=== PATIENT | female | born 1955 | race African-American/Black ===

== ENCOUNTER 2017-05-11 09:52 | Inpatient (IN) ==
[2017-05-11] MEDS ORDERED: LEVOFLOXACIN INJ 500 MG in PREMIX 1 EACH IV STA (10:40)
[2017-05-11] MEDS ORDERED: ALBUTEROL/IPRATROPIUM 3 ML NEB RESP TX STA (10:40)
[2017-05-11] MEDS ORDERED: LEVOFLOXACIN INJ 100 ML IV ONE ×2 (11:34→12:44)
[2017-05-11 11:47] LABS: Basophils # 0.1 10*3/uL (0.0-0.2); Basophils % 0.3 % (0.0-0.8); Eosinophils # 0.2 10*3/uL (0.0-0.87); Eosinophils % 0.7 % (0.00-10.9); Hematocrit 29.9 VOL% (35.7-47.0); Hemoglobin 9.3 GM/DL (12.0-16.0); Immature Granulocytes Absolute 0.22 #; Lymphocytes # 2.4 10*3/uL (1.4-4.0); Lymphocytes % 10.6 % (21.3-54.2); Mean Corpuscular HGB Conc 31.1 GM/DL (32-36); Mean Corpuscular Hemoglobin 27 PG (27-34); Mean Corpuscular Volume 85.2 FL (87-102); Mean Platelet Volume 9.8 FL (9.6-12.0); Monocytes # 1.5 10*3/uL (0.11-0.8); Monocytes % 6.8 % (1.7-12.7); Neutrophils # 18.1 10*3/uL (1.4-7.4); Neutrophils % 80.6 % (38.7-73.9); Platelet Count 359 T/CUMM (130-400); Red Blood Count 3.51 MC/CUMM (3.8-5.5); Red Cell Distribution Width 15.7 % (9.3-17.3); White Blood Count 22.5 T/CUMM (4-12)
[2017-05-11 12:06] LABS: Band Neutrophils 1 % (0-10); Giant Platelets Few; Hypochromasia 1+; Lymphocytes 9 % (20-55); Platelet Estimate Adequate; Segmented Neutrophils 85 % (50-85); Total Cells Counted 100
[2017-05-11 12:11] LABS: Lactic Acid 1.3 MMOL/L (0.4-2.0)
[2017-05-11 12:12] LABS: Albumin 2.6 G/DL (3.4-5.0); Bilirubin,Total 0.6 MG/DL (0.2-1.0); Calcium 8.7 MG/DL (8.5-10.1); Osmolality,Calculated 288.1 MOS/KG (273-304); Potassium 4.2 MMOL/L (3.5-5.1); Total Protein 6.7 G/DL (6.4-8.3)
[2017-05-11] MEDS ORDERED: ACETAMINOPHEN 500 MG TABLET ONE (12:45)
[2017-05-11] MEDS ORDERED: ACETAMINOPHEN 500 MG TABLET PO STA (12:50)
[2017-05-11] MEDS ORDERED: SODIUM CHLORIDE 0.9% 1,000 ML IV SCH (14:30)
[2017-05-11] MEDS ORDERED: ONDANSETRON 4 MG/2 ML VIAL IV PRN (14:30)
[2017-05-11] MEDS ORDERED: ACETAMINOPHEN 325 MG TABLET PO PRN (14:30)
[2017-05-11] MEDS: PROPOFOL 1,000 MG/100 ML BOTTLE IV SCH ×4 (15:00→22:45)
[2017-05-11] MEDS ORDERED: PROPOFOL 1,000 MG/100 ML BOTTLE IV ONE ×3 (15:02→16:59)
[2017-05-11] MEDS ORDERED: ETOMIDATE 40 MG/20 ML VIAL IV ONE (15:12)
[2017-05-11] MEDS ORDERED: SUCCINYLCHOLINE 200 MG/10 ML VIAL ONE (15:12)
[2017-05-11 16:19] LABS: Amorphous Crystals,Urine Few /HPF (Few); Apearance,Urine CLOUDY (Clear); Bacteria,Urine Many /HPF (Few); Bilirubin,Urine Negative (Negative); Blood, Urine Small mg/dL (Negative); Glucose,Urine (UA) 150 mg/dL (Negative); Ketones,Urine 5 mg/dL (Negative); Nitrite,Urine Negative (Negative); Protein,Urine >=500 MG/DL; Squamous Epithelial Cell,Urine Moderate /HPF (0-10); Urine Specific Gravity 1.016 (1.001-1.035); Urine Urobilinogen < 2.0 EU/DL (0.2-1.0)
[2017-05-11 16:20] LABS: Urine Color Yellow (Yellow)
[2017-05-11] MEDS: ALBUTEROL/IPRATROPIUM 3 ML NEB RESP TX SCH ×2 (16:40→20:22)
[2017-05-11] MEDS ORDERED: FUROSEMIDE 40 MG/4 ML VIAL IV ONE (16:50)
[2017-05-11] MEDS ORDERED: LIDOCAINE 2% 20 ML VIAL ONE (16:55)
[2017-05-11] MEDS: PIPERACILLIN/TAZOBACTAM 3,375 MG in SODIUM CHLORIDE 0.9% 100 ML IV SCH (19:47)
[2017-05-11] MEDS: MIDAZOLAM 100 MG in SODIUM CHLORIDE 0.9% 80 ML IV SCH (19:50)
[2017-05-11] MEDS: LABETALOL 20 MG/4 ML SYRINGE IV PRN ×2 (19:56→22:45)
[2017-05-11] MEDS: ENOXAPARIN 60 MG/0.6 ML SYRINGE SUBCUT SCH (19:56)
[2017-05-11] MEDS: cloNIDine 0.3 MG/24 HR PATCH TRANSDERM SCH (21:46)
[2017-05-11] MEDS: INSULIN LISPRO 100 UNIT/ML SUBCUT SCH (21:48)
[2017-05-11] MEDS: DOCUSATE SODIUM 100 MG CAPSULE PO SCH (21:48)
[2017-05-12] MEDS: PROPOFOL 1,000 MG/100 ML BOTTLE IV SCH ×11 (00:46→23:18)
[2017-05-12] MEDS: ALBUTEROL/IPRATROPIUM 3 ML NEB RESP TX SCH ×4 (01:01→19:48)
[2017-05-12] MEDS: PIPERACILLIN/TAZOBACTAM 3,375 MG in SODIUM CHLORIDE 0.9% 100 ML IV SCH ×3 (02:17→17:54)
[2017-05-12] MEDS: LABETALOL 20 MG/4 ML SYRINGE IV PRN ×4 (02:17→16:45)
[2017-05-12 03:52] LABS: ABG Base Excess -2.5 MMOL/L (-2.5-2.5); ABG HCO3 23.5 MMOL/L (20-26); ABG Oxygen Saturation 99.1 % (95-100); ABG PCO2 45.9 MM HG (35-48); ABG PH 7.327 (7.35-7.45); ABG PO2 206.6 MM HG (80-95); ABG TCO2 24.9 MMOL/L (23-27); Allen Test Positive; Pt O2 Delivery Device Ventilator
[2017-05-12 05:15] LABS: Basophils % 0.2 % (0.0-0.8); Eosinophils % 0.1 % (0.00-10.9); Hematocrit 26.8 VOL% (35.7-47.0); Hemoglobin 8.7 GM/DL (12.0-16.0); Immature Granulocytes % 0.8 %; Immature Granulocytes Absolute 0.15 #; Lymphocytes # 1.8 10*3/uL (1.4-4.0); Lymphocytes % 9.8 % (21.3-54.2); Mean Corpuscular HGB Conc 32.5 GM/DL (32-36); Mean Corpuscular Hemoglobin 27 PG (27-34); Mean Corpuscular Volume 84.5 FL (87-102); Mean Platelet Volume 9.8 FL (9.6-12.0); Monocytes # 1.1 10*3/uL (0.11-0.8); Monocytes % 5.8 % (1.7-12.7); Neutrophils # 15.5 10*3/uL (1.4-7.4); Neutrophils % 83.3 % (38.7-73.9); Platelet Count 324 T/CUMM (130-400); Red Blood Count 3.17 MC/CUMM (3.8-5.5); Red Cell Distribution Width 15.5 % (9.3-17.3); White Blood Count 18.6 T/CUMM (4-12)
[2017-05-12 06:04] LABS: Bilirubin,Total 1.1 MG/DL (0.2-1.0); Free T4 (Free Thyroxine) 1.01 NG/DL (0.76-1.46); Osmolality,Calculated 294.4 MOS/KG (273-304); Potassium 4.3 MMOL/L (3.5-5.1); Risk Ratio 3.12; Thyroid Stimulating Hormone 1.07 uIU/ml (0.358-3.74); Total Protein 5.9 G/DL (6.4-8.3); VLDL CHOLESTEROL 32.2 MG/DL
[2017-05-12] MEDS ORDERED: FUROSEMIDE 40 MG/4 ML VIAL IV ONE (07:55)
[2017-05-12] MEDS: INSULIN LISPRO 100 UNIT/ML SUBCUT SCH ×4 (08:03→22:26)
[2017-05-12] MEDS: PANTOPRAZOLE 40 MG VIAL IV SCH (08:04)
[2017-05-12] MEDS: DOCUSATE SODIUM 100 MG CAPSULE PO SCH ×2 (08:04→22:21)
[2017-05-12] MEDS ORDERED: PANTOPRAZOLE 40 MG TABLET PO SCH (09:00)
[2017-05-12] MEDS: ENOXAPARIN 60 MG/0.6 ML SYRINGE SUBCUT SCH (22:27)
[2017-05-13] MEDS: ALBUTEROL/IPRATROPIUM 3 ML NEB RESP TX SCH ×4 (01:23→20:03)
[2017-05-13] MEDS: PROPOFOL 1,000 MG/100 ML BOTTLE IV SCH ×7 (01:45→22:24)
[2017-05-13] MEDS: PIPERACILLIN/TAZOBACTAM 3,375 MG in SODIUM CHLORIDE 0.9% 100 ML IV SCH ×3 (02:49→18:10)
[2017-05-13] MEDS: MIDAZOLAM 100 MG in SODIUM CHLORIDE 0.9% 80 ML IV SCH ×3 (03:50→20:34)
[2017-05-13 04:14] LABS: ABG Base Excess -1.7 MMOL/L (-2.5-2.5); ABG Oxygen Saturation 99.2 % (95-100); ABG PCO2 49.4 MM HG (35-48); ABG PH 7.317 (7.35-7.45); ABG TCO2 21.8 MMOL/L (23-27); Pt O2 Delivery Device Ventilator
[2017-05-13 05:47] LABS: Basophils # 0.1 10*3/uL (0.0-0.2); Basophils % 0.4 % (0.0-0.8); Eosinophils # 0.7 10*3/uL (0.0-0.87); Eosinophils % 4.6 % (0.00-10.9); Hematocrit 26.8 VOL% (35.7-47.0); Hemoglobin 8.3 GM/DL (12.0-16.0); Immature Granulocytes % 1.3 %; Immature Granulocytes Absolute 0.19 #; Lymphocytes # 2.4 10*3/uL (1.4-4.0); Lymphocytes % 16.1 % (21.3-54.2); Mean Corpuscular Hemoglobin 27 PG (27-34); Mean Corpuscular Volume 85.9 FL (87-102); Mean Platelet Volume 10.3 FL (9.6-12.0); Monocytes % 7.1 % (1.7-12.7); Neutrophils # 10.3 10*3/uL (1.4-7.4); Neutrophils % 70.5 % (38.7-73.9); Platelet Count 332 T/CUMM (130-400); Red Blood Count 3.12 MC/CUMM (3.8-5.5); Red Cell Distribution Width 15.4 % (9.3-17.3); White Blood Count 14.6 T/CUMM (4-12)
[2017-05-13 06:05] LABS: Albumin 1.9 G/DL (3.4-5.0); Bilirubin,Total 0.8 MG/DL (0.2-1.0); Calcium 8.5 MG/DL (8.5-10.1); Osmolality,Calculated 296.8 MOS/KG (273-304); Total Protein 6.1 G/DL (6.4-8.3)
[2017-05-13] MEDS: LOSARTAN/HCTZ 50-12.5 MG TABLET PO SCH (08:46)
[2017-05-13] MEDS: DOCUSATE SODIUM 100 MG CAPSULE PO SCH ×2 (08:46→20:16)
[2017-05-13] MEDS: FUROSEMIDE 40 MG/4 ML VIAL IV SCH (08:46)
[2017-05-13] MEDS: PANTOPRAZOLE 40 MG VIAL IV SCH (08:47)
[2017-05-13] MEDS: amLODIPine 5 MG TABLET PO SCH ×2 (08:47→20:16)
[2017-05-13] MEDS: LABETALOL 20 MG/4 ML SYRINGE IV PRN ×7 (09:15→19:22)
[2017-05-13] MEDS: INSULIN LISPRO 100 UNIT/ML SUBCUT SCH ×5 (09:35→23:57)
[2017-05-13] MEDS ORDERED: DEXTROSE 50% 25 GM/50 ML VIAL IV PRN (11:31)
[2017-05-13] MEDS ORDERED: GLUCAGON 1 MG VIAL IM PRN (11:31)
[2017-05-13] MEDS: ENOXAPARIN 60 MG/0.6 ML SYRINGE SUBCUT SCH (20:16)
[2017-05-13] MEDS ORDERED: hydrALAZINE 20 MG/1 ML VIAL IV ONE (21:21)
[2017-05-13] MEDS: hydrALAZINE 20 MG/1 ML VIAL IV PRN (21:50)
[2017-05-14] MEDS: LABETALOL 20 MG/4 ML SYRINGE IV PRN ×3 (00:35→23:21)
[2017-05-14] MEDS: ALBUTEROL/IPRATROPIUM 3 ML NEB RESP TX SCH ×5 (00:51→23:59)
[2017-05-14] MEDS: PIPERACILLIN/TAZOBACTAM 3,375 MG in SODIUM CHLORIDE 0.9% 100 ML IV SCH ×3 (02:28→17:12)
[2017-05-14] MEDS: PROPOFOL 1,000 MG/100 ML BOTTLE IV SCH ×6 (03:30→23:36)
[2017-05-14 04:05] LABS: Basophils % 0.2 % (0.0-0.8); Eosinophils # 0.6 10*3/uL (0.0-0.87); Eosinophils % 3.4 % (0.00-10.9); Hematocrit 23.8 VOL% (35.7-47.0); Hemoglobin 7.9 GM/DL (12.0-16.0); Immature Granulocytes % 2.7 %; Immature Granulocytes Absolute 0.45 #; Lymphocytes # 2.5 10*3/uL (1.4-4.0); Lymphocytes % 15.1 % (21.3-54.2); Mean Corpuscular HGB Conc 33.2 GM/DL (32-36); Mean Corpuscular Hemoglobin 28 PG (27-34); Mean Corpuscular Volume 85.3 FL (87-102); Mean Platelet Volume 10.2 FL (9.6-12.0); Monocytes # 1.4 10*3/uL (0.11-0.8); Neutrophils # 11.9 10*3/uL (1.4-7.4); Neutrophils % 70.6 % (38.7-73.9); Platelet Count 366 T/CUMM (130-400); Red Blood Count 2.79 MC/CUMM (3.8-5.5); Red Cell Distribution Width 15.8 % (9.3-17.3); White Blood Count 16.9 T/CUMM (4-12)
[2017-05-14] MEDS: hydrALAZINE 20 MG/1 ML VIAL IV PRN (04:06)
[2017-05-14 04:36] LABS: Calcium 7.4 MG/DL (8.5-10.1); Osmolality,Calculated 295.3 MOS/KG (273-304); Potassium 3.7 MMOL/L (3.5-5.1)
[2017-05-14 05:12] LABS: Allen Test Positive; Pt O2 Delivery Device Ventilator
[2017-05-14 05:13] LABS: ABG HCO3 26.1 MMOL/L (20-26); ABG Oxygen Saturation 98.7 % (95-100); ABG PH 7.444 (7.35-7.45); ABG PO2 151.8 MM HG (80-95); ABG TCO2 27.3 MMOL/L (23-27)
[2017-05-14] MEDS: INSULIN LISPRO 100 UNIT/ML SUBCUT SCH ×4 (06:05→23:35)
[2017-05-14 07:19] LABS: Prealbumin 38.7 MG/DL (20-40)
[2017-05-14] MEDS: PANTOPRAZOLE 40 MG VIAL IV SCH (09:13)
[2017-05-14] MEDS: FUROSEMIDE 40 MG/4 ML VIAL IV SCH (09:13)
[2017-05-14] MEDS: amLODIPine 5 MG TABLET PO SCH ×2 (09:14→21:02)
[2017-05-14] MEDS: LOSARTAN/HCTZ 50-12.5 MG TABLET PO SCH (09:14)
[2017-05-14] MEDS: DOCUSATE SODIUM 100 MG CAPSULE PO SCH ×2 (09:14→21:03)
[2017-05-14] MEDS: ENOXAPARIN 60 MG/0.6 ML SYRINGE SUBCUT SCH (20:07)
[2017-05-14] MEDS: MUPIROCIN 2% OINT 22 GM TUBE TOP SCH (21:03)
[2017-05-14] MEDS: MIDAZOLAM 100 MG in SODIUM CHLORIDE 0.9% 80 ML IV SCH (23:22)
[2017-05-15] MEDS: PIPERACILLIN/TAZOBACTAM 3,375 MG in SODIUM CHLORIDE 0.9% 100 ML IV SCH ×3 (01:07→20:07)
[2017-05-15] MEDS: hydrALAZINE 20 MG/1 ML VIAL IV PRN (02:23)
[2017-05-15 02:54] LABS: Basophils % 0.3 % (0.0-0.8); Eosinophils # 0.8 10*3/uL (0.0-0.87); Eosinophils % 5.6 % (0.00-10.9); Hematocrit 22.5 VOL% (35.7-47.0); Hemoglobin 7.2 GM/DL (12.0-16.0); Immature Granulocytes % 3.7 %; Immature Granulocytes Absolute 0.54 #; Lymphocytes # 2.3 10*3/uL (1.4-4.0); Lymphocytes % 15.6 % (21.3-54.2); Mean Corpuscular Hemoglobin 28 PG (27-34); Mean Corpuscular Volume 85.9 FL (87-102); Mean Platelet Volume 9.6 FL (9.6-12.0); Monocytes # 1.3 10*3/uL (0.11-0.8); Monocytes % 8.6 % (1.7-12.7); Neutrophils # 9.8 10*3/uL (1.4-7.4); Neutrophils % 66.2 % (38.7-73.9); Platelet Count 343 T/CUMM (130-400); Red Blood Count 2.62 MC/CUMM (3.8-5.5); Red Cell Distribution Width 15.9 % (9.3-17.3); White Blood Count 14.7 T/CUMM (4-12)
[2017-05-15] MEDS: PROPOFOL 1,000 MG/100 ML BOTTLE IV SCH ×7 (03:11→21:51)
[2017-05-15 05:30] LABS: Albumin 1.9 G/DL (3.4-5.0); Bilirubin,Total 1.3 MG/DL (0.2-1.0); Calcium 7.9 MG/DL (8.5-10.1); Osmolality,Calculated 301.8 MOS/KG (273-304); Potassium 3.8 MMOL/L (3.5-5.1); Total Protein 5.9 G/DL (6.4-8.3)
[2017-05-15 06:05] LABS: ABG Base Excess 1.9 MMOL/L (-2.5-2.5); ABG HCO3 26.1 MMOL/L (20-26); ABG Oxygen Saturation 98.3 % (95-100); ABG PCO2 44.9 MM HG (35-48); ABG TCO2 25.4 MMOL/L (23-27)
[2017-05-15 06:52] LABS: Eosinophils 1 % (0-10); Lymphocytes 16 % (20-55); Platelet Estimate Adequate; Segmented Neutrophils 73 % (50-85); Total Cells Counted 100
[2017-05-15] MEDS: INSULIN LISPRO 100 UNIT/ML SUBCUT SCH ×3 (07:12→17:55)
[2017-05-15] MEDS: ALBUTEROL/IPRATROPIUM 3 ML NEB RESP TX SCH ×3 (07:46→19:50)
[2017-05-15] MEDS: MUPIROCIN 2% OINT 22 GM TUBE TOP SCH ×2 (09:15→21:14)
[2017-05-15] MEDS: amLODIPine 5 MG TABLET PO SCH ×2 (09:18→21:15)
[2017-05-15] MEDS: PANTOPRAZOLE 40 MG VIAL IV SCH (09:18)
[2017-05-15] MEDS: FUROSEMIDE 40 MG/4 ML VIAL IV SCH (09:18)
[2017-05-15] MEDS: DOCUSATE SODIUM 100 MG/10 ML UDCUP PO SCH ×2 (09:18→21:15)
[2017-05-15] MEDS: LOSARTAN/HCTZ 50-12.5 MG TABLET PO SCH (09:18)
[2017-05-15] MEDS: MULTIVITAMIN LIQUID (CENTRUM) 60 ML BOTTLE PO SCH (09:21)
[2017-05-15] MEDS: ZINC OXIDE PASTE 113 GM TUBE TOP PRN (09:21)
[2017-05-15] MEDS ORDERED: SODIUM CHLORIDE 0.9% 1,000 ML IV PRN (11:11)
[2017-05-15] MEDS ORDERED: FUROSEMIDE 40 MG/4 ML VIAL IV ONE (11:19)
[2017-05-15] MEDS: MIDAZOLAM 100 MG in SODIUM CHLORIDE 0.9% 80 ML IV SCH (19:58)
[2017-05-15] MEDS: ENOXAPARIN 60 MG/0.6 ML SYRINGE SUBCUT SCH (21:14)
[2017-05-16] MEDS: PROPOFOL 1,000 MG/100 ML BOTTLE IV SCH ×10 (00:16→22:00)
[2017-05-16] MEDS: INSULIN LISPRO 100 UNIT/ML SUBCUT SCH ×4 (00:23→18:28)
[2017-05-16] MEDS: hydrALAZINE 20 MG/1 ML VIAL IV PRN (00:35)
[2017-05-16] MEDS ORDERED: HYDROmorphone 2 MG/1 ML VIAL ONE (01:04)
[2017-05-16] MEDS: HYDROmorphone 2 MG/1 ML VIAL IV PRN ×2 (01:06→20:34)
[2017-05-16] MEDS: ALBUTEROL/IPRATROPIUM 3 ML NEB RESP TX SCH ×4 (02:09→18:15)
[2017-05-16] MEDS: PIPERACILLIN/TAZOBACTAM 3,375 MG in SODIUM CHLORIDE 0.9% 100 ML IV SCH ×3 (03:06→18:27)
[2017-05-16 03:28] LABS: ABG Base Excess 1.7 MMOL/L (-2.5-2.5); ABG HCO3 27.5 MMOL/L (20-26); ABG Oxygen Saturation 95.2 % (95-100); ABG PH 7.367 (7.35-7.45)
[2017-05-16 04:27] LABS: Basophils # 0.1 10*3/uL (0.0-0.2); Basophils % 0.4 % (0.0-0.8); Eosinophils # 0.9 10*3/uL (0.0-0.87); Eosinophils % 6.1 % (0.00-10.9); Hematocrit 28.3 VOL% (35.7-47.0); Immature Granulocytes % 4.5 %; Immature Granulocytes Absolute 0.66 #; Lymphocytes # 2.2 10*3/uL (1.4-4.0); Lymphocytes % 14.7 % (21.3-54.2); Mean Corpuscular HGB Conc 33.2 GM/DL (32-36); Mean Corpuscular Hemoglobin 29 PG (27-34); Mean Corpuscular Volume 87.6 FL (87-102); Mean Platelet Volume 10.1 FL (9.6-12.0); Monocytes % 6.8 % (1.7-12.7); Neutrophils # 9.9 10*3/uL (1.4-7.4); Neutrophils % 67.5 % (38.7-73.9); Platelet Count 349 T/CUMM (130-400); Red Blood Count 3.23 MC/CUMM (3.8-5.5); Red Cell Distribution Width 16.6 % (9.3-17.3); White Blood Count 14.7 T/CUMM (4-12)
[2017-05-16 04:29] LABS: Hemoglobin 9.4 GM/DL (12.0-16.0)
[2017-05-16 05:19] LABS: Band Neutrophils 3 % (0-10); Eosinophils 7 % (0-10); Giant Platelets Few; Lymphocytes 14 % (20-55); Platelet Estimate Adequate; Segmented Neutrophils 73 % (50-85); Total Cells Counted 100
[2017-05-16 05:44] LABS: Osmolality,Calculated 293.8 MOS/KG (273-304); Potassium 3.7 MMOL/L (3.5-5.1)
[2017-05-16] MEDS: LOSARTAN/HCTZ 50-12.5 MG TABLET PO SCH (09:09)
[2017-05-16] MEDS: DOCUSATE SODIUM 100 MG/10 ML UDCUP PO SCH ×2 (09:09→20:34)
[2017-05-16] MEDS: FUROSEMIDE 40 MG/4 ML VIAL IV SCH (09:09)
[2017-05-16] MEDS: MUPIROCIN 2% OINT 22 GM TUBE TOP SCH ×2 (09:09→20:41)
[2017-05-16] MEDS: PANTOPRAZOLE 40 MG VIAL IV SCH (09:10)
[2017-05-16] MEDS: amLODIPine 5 MG TABLET PO SCH ×2 (09:10→20:34)
[2017-05-16] MEDS: MULTIVITAMIN LIQUID (CENTRUM) 60 ML BOTTLE PO SCH (09:12)
[2017-05-16] MEDS: ENOXAPARIN 60 MG/0.6 ML SYRINGE SUBCUT SCH (20:33)
[2017-05-16] MEDS: MIDAZOLAM 100 MG in SODIUM CHLORIDE 0.9% 80 ML IV SCH (20:41)
[2017-05-17] MEDS: INSULIN LISPRO 100 UNIT/ML SUBCUT SCH ×4 (00:11→18:09)
[2017-05-17] MEDS: ALBUTEROL/IPRATROPIUM 3 ML NEB RESP TX SCH ×4 (00:30→19:20)
[2017-05-17] MEDS: PIPERACILLIN/TAZOBACTAM 3,375 MG in SODIUM CHLORIDE 0.9% 100 ML IV SCH ×3 (01:03→18:09)
[2017-05-17] MEDS: HYDROmorphone 2 MG/1 ML VIAL IV PRN (02:25)
[2017-05-17 04:18] LABS: Basophils # 0.1 10*3/uL (0.0-0.2); Basophils % 0.4 % (0.0-0.8); Eosinophils # 0.9 10*3/uL (0.0-0.87); Eosinophils % 4.5 % (0.00-10.9); Hematocrit 29.9 VOL% (35.7-47.0); Hemoglobin 9.4 GM/DL (12.0-16.0); Immature Granulocytes % 4.1 %; Lymphocytes # 2.1 10*3/uL (1.4-4.0); Lymphocytes % 10.5 % (21.3-54.2); Mean Corpuscular HGB Conc 31.4 GM/DL (32-36); Mean Corpuscular Hemoglobin 28 PG (27-34); Mean Corpuscular Volume 87.9 FL (87-102); Mean Platelet Volume 9.9 FL (9.6-12.0); Monocytes # 1.4 10*3/uL (0.11-0.8); NRBC # 0.02 10*3/uL; Neutrophils # 14.5 10*3/uL (1.4-7.4); Neutrophils % 73.5 % (38.7-73.9); Platelet Count 410 T/CUMM (130-400); Red Cell Distribution Width 17.2 % (9.3-17.3); White Blood Count 19.7 T/CUMM (4-12)
[2017-05-17 04:25] LABS: ABG Base Excess -2.4 MMOL/L (-2.5-2.5); ABG HCO3 22.4 MMOL/L (20-26); ABG Oxygen Saturation 95.7 % (95-100); ABG PCO2 64.3 MM HG (35-48); ABG PH 7.222 (7.35-7.45); ABG TCO2 24.7 MMOL/L (23-27)
[2017-05-17 04:49] LABS: Prealbumin 14.7 MG/DL (20-40)
[2017-05-17 04:54] LABS: Calcium 8.3 MG/DL (8.5-10.1); Osmolality,Calculated 301.4 MOS/KG (273-304); Potassium 4.8 MMOL/L (3.5-5.1)
[2017-05-17 05:09] LABS: Eosinophils 3 % (0-10); Lymphocytes 12 % (20-55); Segmented Neutrophils 76 % (50-85); Total Cells Counted 100
[2017-05-17 05:10] LABS: Giant Platelets Few; Hypochromasia 1+; Platelet Estimate Adequate
[2017-05-17] MEDS ORDERED: SODIUM CHLORIDE 0.9% 250 ML IV ONE (05:30)
[2017-05-17] MEDS: SODIUM CHLORIDE 0.9% 1,000 ML IV SCH ×2 (05:39→14:00)
[2017-05-17] MEDS: amLODIPine 5 MG TABLET PO SCH ×2 (08:12→21:10)
[2017-05-17] MEDS: LOSARTAN/HCTZ 50-12.5 MG TABLET PO SCH (08:12)
[2017-05-17] MEDS: DOCUSATE SODIUM 100 MG/10 ML UDCUP PO SCH ×2 (08:13→21:10)
[2017-05-17] MEDS: PANTOPRAZOLE 40 MG VIAL IV SCH (08:13)
[2017-05-17] MEDS: MUPIROCIN 2% OINT 22 GM TUBE TOP SCH ×2 (08:14→21:13)
[2017-05-17] MEDS: MULTIVITAMIN LIQUID (CENTRUM) 60 ML BOTTLE PO SCH (08:14)
[2017-05-17] MEDS: PROPOFOL 1,000 MG/100 ML BOTTLE IV SCH (18:09)
[2017-05-17] MEDS: MIDAZOLAM 100 MG in SODIUM CHLORIDE 0.9% 80 ML IV SCH (18:10)
[2017-05-17] MEDS: ENOXAPARIN 60 MG/0.6 ML SYRINGE SUBCUT SCH (21:05)
[2017-05-17] MEDS: hydrALAZINE 25 MG TABLET PO SCH (21:10)
[2017-05-18] MEDS: ALBUTEROL/IPRATROPIUM 3 ML NEB RESP TX SCH ×4 (00:24→19:12)
[2017-05-18] MEDS: INSULIN LISPRO 100 UNIT/ML SUBCUT SCH ×4 (01:13→18:28)
[2017-05-18] MEDS: SODIUM CHLORIDE 0.9% 1,000 ML IV SCH ×4 (01:45→21:06)
[2017-05-18] MEDS: LABETALOL 20 MG/4 ML SYRINGE IV PRN ×3 (01:57→20:51)
[2017-05-18] MEDS: PIPERACILLIN/TAZOBACTAM 3,375 MG in SODIUM CHLORIDE 0.9% 100 ML IV SCH ×3 (02:31→18:28)
[2017-05-18 04:17] LABS: ABG Base Excess -0.2 MMOL/L (-2.5-2.5); ABG HCO3 25.7 MMOL/L (20-26); ABG PCO2 47.7 MM HG (35-48); ABG PH 7.349 (7.35-7.45); ABG TCO2 27.1 MMOL/L (23-27); Allen Test Positive; Pt O2 Delivery Device Ventilator
[2017-05-18 04:37] LABS: Basophils % 0.2 % (0.0-0.8); Eosinophils # 0.8 10*3/uL (0.0-0.87); Eosinophils % 4.3 % (0.00-10.9); Hematocrit 29.3 VOL% (35.7-47.0); Hemoglobin 9.4 GM/DL (12.0-16.0); Immature Granulocytes % 3.5 %; Immature Granulocytes Absolute 0.65 #; Lymphocytes # 2.2 10*3/uL (1.4-4.0); Lymphocytes % 12.1 % (21.3-54.2); Mean Corpuscular HGB Conc 32.1 GM/DL (32-36); Mean Corpuscular Hemoglobin 28 PG (27-34); Mean Corpuscular Volume 85.7 FL (87-102); Mean Platelet Volume 9.6 FL (9.6-12.0); Monocytes # 1.4 10*3/uL (0.11-0.8); Monocytes % 7.7 % (1.7-12.7); Neutrophils # 13.2 10*3/uL (1.4-7.4); Neutrophils % 72.2 % (38.7-73.9); Platelet Count 375 T/CUMM (130-400); Red Blood Count 3.42 MC/CUMM (3.8-5.5); Red Cell Distribution Width 16.8 % (9.3-17.3); White Blood Count 18.3 T/CUMM (4-12)
[2017-05-18] MEDS: hydrALAZINE 20 MG/1 ML VIAL IV PRN ×2 (04:39→13:06)
[2017-05-18 05:06] LABS: Eosinophils 4 % (0-10); Hypochromasia 1+; Lymphocytes 16 % (20-55); Microcytosis 1+; Platelet Estimate Normal; Segmented Neutrophils 75 % (50-85); Total Cells Counted 100
[2017-05-18 06:30] LABS: Albumin 1.8 G/DL (3.4-5.0); Bilirubin,Total 1.2 MG/DL (0.2-1.0); Calcium 8.1 MG/DL (8.5-10.1); Osmolality,Calculated 309.1 MOS/KG (273-304); Potassium 4.3 MMOL/L (3.5-5.1); Total Protein 6.4 G/DL (6.4-8.3)
[2017-05-18] MEDS: HYDROmorphone 2 MG/1 ML VIAL IV PRN ×2 (06:49→16:50)
[2017-05-18] MEDS: PANTOPRAZOLE 40 MG VIAL IV SCH (08:14)
[2017-05-18] MEDS: MUPIROCIN 2% OINT 22 GM TUBE TOP SCH ×2 (08:16→20:57)
[2017-05-18] MEDS: cloNIDine 0.3 MG/24 HR PATCH TRANSDERM SCH (08:16)
[2017-05-18] MEDS: hydrALAZINE 25 MG TABLET PO SCH ×2 (08:17→21:05)
[2017-05-18] MEDS: amLODIPine 5 MG TABLET PO SCH ×2 (08:17→21:05)
[2017-05-18] MEDS: DOCUSATE SODIUM 100 MG/10 ML UDCUP PO SCH ×2 (08:17→21:05)
[2017-05-18] MEDS: MULTIVITAMIN LIQUID (CENTRUM) 60 ML BOTTLE PO SCH (08:18)
[2017-05-18] MEDS: ZINC OXIDE PASTE 113 GM TUBE TOP PRN (08:20)
[2017-05-18] MEDS: PROPOFOL 1,000 MG/100 ML BOTTLE IV SCH (18:25)
[2017-05-18] MEDS: ENOXAPARIN 60 MG/0.6 ML SYRINGE SUBCUT SCH (20:56)
[2017-05-19] MEDS: ALBUTEROL/IPRATROPIUM 3 ML NEB RESP TX SCH ×4 (00:32→19:10)
[2017-05-19] MEDS: INSULIN LISPRO 100 UNIT/ML SUBCUT SCH ×4 (00:36→17:38)
[2017-05-19] MEDS: PIPERACILLIN/TAZOBACTAM 3,375 MG in SODIUM CHLORIDE 0.9% 100 ML IV SCH ×3 (03:03→17:39)
[2017-05-19] MEDS: LABETALOL 20 MG/4 ML SYRINGE IV PRN ×2 (03:38→17:39)
[2017-05-19 04:52] LABS: Basophils # 0.1 10*3/uL (0.0-0.2); Basophils % 0.4 % (0.0-0.8); Eosinophils # 0.5 10*3/uL (0.0-0.87); Eosinophils % 2.3 % (0.00-10.9); Hemoglobin 9.4 GM/DL (12.0-16.0); Immature Granulocytes % 2.9 %; Immature Granulocytes Absolute 0.56 #; Lymphocytes # 2.2 10*3/uL (1.4-4.0); Lymphocytes % 11.6 % (21.3-54.2); Mean Corpuscular HGB Conc 30.3 GM/DL (32-36); Mean Corpuscular Hemoglobin 27 PG (27-34); Mean Corpuscular Volume 88.3 FL (87-102); Mean Platelet Volume 9.4 FL (9.6-12.0); Monocytes # 1.4 10*3/uL (0.11-0.8); Monocytes % 7.4 % (1.7-12.7); Neutrophils # 14.6 10*3/uL (1.4-7.4); Neutrophils % 75.4 % (38.7-73.9); Platelet Count 401 T/CUMM (130-400); Red Blood Count 3.51 MC/CUMM (3.8-5.5); Red Cell Distribution Width 17.1 % (9.3-17.3); White Blood Count 19.4 T/CUMM (4-12)
[2017-05-19] MEDS: hydrALAZINE 20 MG/1 ML VIAL IV PRN (05:13)
[2017-05-19 05:18] LABS: Band Neutrophils 1 % (0-10); Eosinophils 1 % (0-10); Lymphocytes 13 % (20-55); Nucleated Red Blood Cells 1 (0-5); Segmented Neutrophils 77 % (50-85); Total Cells Counted 100
[2017-05-19 05:19] LABS: Giant Platelets Few; Hypochromasia 1+; Microcytosis 1+; Platelet Estimate Increased
[2017-05-19 05:38] LABS: Albumin 1.9 G/DL (3.4-5.0); Bilirubin,Total 1.2 MG/DL (0.2-1.0); Osmolality,Calculated 316.1 MOS/KG (273-304); Potassium 4.3 MMOL/L (3.5-5.1); Total Protein 6.4 G/DL (6.4-8.3)
[2017-05-19] MEDS: SODIUM CHLORIDE 0.9% 1,000 ML IV SCH ×4 (06:26→16:51)
[2017-05-19] MEDS: DOCUSATE SODIUM 100 MG/10 ML UDCUP PO SCH ×2 (09:40→20:09)
[2017-05-19] MEDS: hydrALAZINE 25 MG TABLET PO SCH ×3 (09:40→20:10)
[2017-05-19] MEDS: amLODIPine 5 MG TABLET PO SCH ×2 (09:40→20:09)
[2017-05-19] MEDS: MULTIVITAMIN LIQUID (CENTRUM) 60 ML BOTTLE PO SCH (09:41)
[2017-05-19] MEDS: MUPIROCIN 2% OINT 22 GM TUBE TOP SCH ×2 (09:41→20:10)
[2017-05-19] MEDS: PANTOPRAZOLE 40 MG VIAL IV SCH (09:41)
[2017-05-19] MEDS ORDERED: NOREPINEPHRINE 4 MG/4 ML VIAL IV ONE (14:19)
[2017-05-19] MEDS: PROPOFOL 1,000 MG/100 ML BOTTLE IV SCH (16:51)
[2017-05-19 19:22] LABS: Basophils # 0.1 10*3/uL (0.0-0.2); Basophils % 0.3 % (0.0-0.8); Eosinophils # 0.8 10*3/uL (0.0-0.87); Eosinophils % 4.3 % (0.00-10.9); Hematocrit 29.4 VOL% (35.7-47.0); Hemoglobin 8.9 GM/DL (12.0-16.0); Immature Granulocytes % 2.5 %; Immature Granulocytes Absolute 0.45 #; Lymphocytes # 2.3 10*3/uL (1.4-4.0); Lymphocytes % 12.9 % (21.3-54.2); Mean Corpuscular HGB Conc 30.3 GM/DL (32-36); Mean Corpuscular Hemoglobin 27 PG (27-34); Mean Corpuscular Volume 88.3 FL (87-102); Monocytes # 1.4 10*3/uL (0.11-0.8); Monocytes % 7.9 % (1.7-12.7); Neutrophils # 12.9 10*3/uL (1.4-7.4); Neutrophils % 72.1 % (38.7-73.9); Platelet Count 393 T/CUMM (130-400); Red Blood Count 3.33 MC/CUMM (3.8-5.5); Red Cell Distribution Width 17.1 % (9.3-17.3); White Blood Count 17.9 T/CUMM (4-12)
[2017-05-19 19:49] LABS: Albumin 1.8 G/DL (3.4-5.0); Bilirubin,Total 1.3 MG/DL (0.2-1.0); Calcium 8.5 MG/DL (8.5-10.1); Osmolality,Calculated 316.1 MOS/KG (273-304); Potassium 4.3 MMOL/L (3.5-5.1); Total Protein 6.4 G/DL (6.4-8.3)
[2017-05-19] MEDS: HYDROmorphone 2 MG/1 ML VIAL IV PRN (19:55)
[2017-05-19] MEDS: ENOXAPARIN 60 MG/0.6 ML SYRINGE SUBCUT SCH (19:56)
[2017-05-20] MEDS: ALBUTEROL/IPRATROPIUM 3 ML NEB RESP TX SCH ×4 (00:16→20:13)
[2017-05-20] MEDS: INSULIN LISPRO 100 UNIT/ML SUBCUT SCH ×4 (00:45→17:35)
[2017-05-20] MEDS: HYDROmorphone 2 MG/1 ML VIAL IV PRN ×5 (01:15→21:09)
[2017-05-20] MEDS: SODIUM CHLORIDE 0.9% 1,000 ML IV SCH (01:20)
[2017-05-20] MEDS: PIPERACILLIN/TAZOBACTAM 3,375 MG in SODIUM CHLORIDE 0.9% 100 ML IV SCH ×3 (02:45→17:35)
[2017-05-20 03:35] LABS: ABG Base Excess -3.7 MMOL/L (-2.5-2.5); ABG HCO3 24.9 MMOL/L (20-26); ABG Oxygen Saturation 97.5 % (95-100); ABG PCO2 65.9 MM HG (35-48); ABG PO2 110.8 MM HG (80-95); Allen Test Positive; Pt O2 Delivery Device Ventilator
[2017-05-20 03:42] LABS: ABG PH 7.196 (7.35-7.45)
[2017-05-20 04:59] LABS: Basophils # 0.1 10*3/uL (0.0-0.2); Basophils % 0.5 % (0.0-0.8); Eosinophils # 1.2 10*3/uL (0.0-0.87); Eosinophils % 6.1 % (0.00-10.9); Hematocrit 31.1 VOL% (35.7-47.0); Hemoglobin 9.2 GM/DL (12.0-16.0); Immature Granulocytes % 3.3 %; Immature Granulocytes Absolute 0.65 #; Lymphocytes # 3.6 10*3/uL (1.4-4.0); Lymphocytes % 18.5 % (21.3-54.2); Mean Corpuscular HGB Conc 29.6 GM/DL (32-36); Mean Corpuscular Hemoglobin 27 PG (27-34); Mean Corpuscular Volume 90.4 FL (87-102); Mean Platelet Volume 9.8 FL (9.6-12.0); Monocytes # 1.7 10*3/uL (0.11-0.8); Monocytes % 8.6 % (1.7-12.7); Neutrophils # 12.4 10*3/uL (1.4-7.4); Platelet Count 453 T/CUMM (130-400); Red Blood Count 3.44 MC/CUMM (3.8-5.5); Red Cell Distribution Width 17.3 % (9.3-17.3); White Blood Count 19.7 T/CUMM (4-12)
[2017-05-20 05:19] LABS: Eosinophils 12 % (0-10); Giant Platelets Few; Hypochromasia 1+; Lymphocytes 16 % (20-55); Platelet Estimate Adequate; Segmented Neutrophils 65 % (50-85); Total Cells Counted 100
[2017-05-20 05:20] LABS: Microcytosis Slight
[2017-05-20 05:38] LABS: Calcium 8.1 MG/DL (8.5-10.1); Potassium 4.5 MMOL/L (3.5-5.1)
[2017-05-20 08:29] LABS: INR 0.9; PT Patient Result 9.7 SECS
[2017-05-20] MEDS: PROPOFOL 1,000 MG/100 ML BOTTLE IV SCH ×6 (08:48→22:50)
[2017-05-20] MEDS: PANTOPRAZOLE 40 MG VIAL IV SCH (09:40)
[2017-05-20] MEDS: MUPIROCIN 2% OINT 22 GM TUBE TOP SCH ×2 (09:40→21:10)
[2017-05-20] MEDS: MULTIVITAMIN LIQUID (CENTRUM) 60 ML BOTTLE PO SCH (10:29)
[2017-05-20] MEDS: hydrALAZINE 25 MG TABLET PO SCH ×3 (10:29→21:10)
[2017-05-20] MEDS: DOCUSATE SODIUM 100 MG/10 ML UDCUP PO SCH ×2 (10:30→21:10)
[2017-05-20] MEDS: amLODIPine 5 MG TABLET PO SCH ×2 (10:30→21:10)
[2017-05-20] MEDS: hydrALAZINE 20 MG/1 ML VIAL IV PRN (13:16)
[2017-05-20] MEDS: ALBUMIN 25% 25 GM in PREMIX 1 EACH IV SCH (13:46)
[2017-05-20] MEDS: FUROSEMIDE 40 MG/4 ML VIAL IV SCH (15:14)
[2017-05-20 15:50] LABS: Glucose,CSF 140 MG/DL (40-70)
[2017-05-20 17:11] LABS: Appearance,CSF Hazy; Red Blood Cell,CSF 10874 C/CUMM; White Blood Cell,CSF 194 C/CUMM
[2017-05-20 17:12] LABS: Eosinophils,CSF 2 %; Lymphocytes,CSF 10 %; Monocytes,CSF 2 %; Neutrophils,CSF 36 %
[2017-05-20] MEDS: ENOXAPARIN 60 MG/0.6 ML SYRINGE SUBCUT SCH (19:14)
[2017-05-21] MEDS: HYDROmorphone 2 MG/1 ML VIAL IV PRN ×5 (00:30→19:23)
[2017-05-21] MEDS: INSULIN LISPRO 100 UNIT/ML SUBCUT SCH ×5 (00:30→23:49)
[2017-05-21] MEDS: ALBUMIN 25% 25 GM in PREMIX 1 EACH IV SCH ×2 (00:31→13:36)
[2017-05-21] MEDS: ALBUTEROL/IPRATROPIUM 3 ML NEB RESP TX SCH ×4 (00:50→19:09)
[2017-05-21] MEDS: PROPOFOL 1,000 MG/100 ML BOTTLE IV SCH ×10 (02:06→23:50)
[2017-05-21 03:23] LABS: ABG Base Excess -5.9 MMOL/L (-2.5-2.5); ABG HCO3 19.5 MMOL/L (20-26); ABG Oxygen Saturation 98.7 % (95-100); ABG PCO2 51.6 MM HG (35-48); ABG PH 7.231 (7.35-7.45); ABG TCO2 20.5 MMOL/L (23-27)
[2017-05-21] MEDS: PIPERACILLIN/TAZOBACTAM 3,375 MG in SODIUM CHLORIDE 0.9% 100 ML IV SCH ×2 (03:55→10:01)
[2017-05-21 04:26] LABS: Basophils # 0.1 10*3/uL (0.0-0.2); Basophils % 0.3 % (0.0-0.8); Eosinophils # 0.7 10*3/uL (0.0-0.87); Eosinophils % 4.1 % (0.00-10.9); Hematocrit 27.9 VOL% (35.7-47.0); Hemoglobin 8.6 GM/DL (12.0-16.0); Lymphocytes # 2.6 10*3/uL (1.4-4.0); Lymphocytes % 14.7 % (21.3-54.2); Mean Corpuscular HGB Conc 30.8 GM/DL (32-36); Mean Corpuscular Hemoglobin 28 PG (27-34); Mean Corpuscular Volume 89.1 FL (87-102); Mean Platelet Volume 10.1 FL (9.6-12.0); Monocytes # 1.4 10*3/uL (0.11-0.8); Monocytes % 7.9 % (1.7-12.7); Neutrophils # 12.2 10*3/uL (1.4-7.4); Platelet Count 379 T/CUMM (130-400); Red Blood Count 3.13 MC/CUMM (3.8-5.5); Red Cell Distribution Width 17.6 % (9.3-17.3); White Blood Count 17.7 T/CUMM (4-12)
[2017-05-21 04:58] LABS: Eosinophils 4 % (0-10); Lymphocytes 15 % (20-55); Segmented Neutrophils 72 % (50-85); Total Cells Counted 100
[2017-05-21 04:59] LABS: Giant Platelets Few; Hypochromasia 1+; Microcytosis Slight; Platelet Estimate Adequate
[2017-05-21 05:08] LABS: Albumin 2.5 G/DL (3.4-5.0); Bilirubin,Total 1.3 MG/DL (0.2-1.0); Calcium 8.9 MG/DL (8.5-10.1); Osmolality,Calculated 314.3 MOS/KG (273-304); Potassium 4.8 MMOL/L (3.5-5.1); Total Protein 6.9 G/DL (6.4-8.3)
[2017-05-21] MEDS: FUROSEMIDE 40 MG/4 ML VIAL IV SCH ×2 (07:49→16:23)
[2017-05-21] MEDS: amLODIPine 5 MG TABLET PO SCH ×2 (08:59→21:01)
[2017-05-21] MEDS: hydrALAZINE 25 MG TABLET PO SCH ×3 (09:00→21:12)
[2017-05-21] MEDS: MULTIVITAMIN LIQUID (CENTRUM) 60 ML BOTTLE PO SCH (09:00)
[2017-05-21] MEDS: PANTOPRAZOLE 40 MG VIAL IV SCH (09:01)
[2017-05-21] MEDS: DOCUSATE SODIUM 100 MG/10 ML UDCUP PO SCH ×2 (09:01→21:01)
[2017-05-21] MEDS: MUPIROCIN 2% OINT 22 GM TUBE TOP SCH ×2 (09:01→21:02)
[2017-05-21] MEDS: ACYCLOVIR INJ 1,000 MG in SODIUM CHLORIDE 0.9% 250 ML IV SCH ×2 (11:09→23:03)
[2017-05-21] MEDS: LINEZOLID INJ 600 MG in PREMIX 1 EACH IV SCH ×2 (12:24→23:50)
[2017-05-21] MEDS: AMPICILLIN INJ 2,000 MG in SODIUM CHLORIDE 0.9% 100 ML IV SCH ×2 (13:41→21:00)
[2017-05-21] MEDS: cefTRIAXone 2,000 MG in SYRINGE 1 EACH IV SCH (13:51)
[2017-05-21] MEDS: ZINC OXIDE PASTE 113 GM TUBE TOP PRN (15:19)
[2017-05-21] MEDS: ENOXAPARIN 60 MG/0.6 ML SYRINGE SUBCUT SCH (21:00)
[2017-05-22] MEDS: ALBUTEROL/IPRATROPIUM 3 ML NEB RESP TX SCH ×4 (00:01→19:36)
[2017-05-22] MEDS: ALBUMIN 25% 25 GM in PREMIX 1 EACH IV SCH ×2 (01:33→13:10)
[2017-05-22] MEDS: cefTRIAXone 2,000 MG in SYRINGE 1 EACH IV SCH ×2 (01:34→13:11)
[2017-05-22] MEDS: PROPOFOL 1,000 MG/100 ML BOTTLE IV SCH ×11 (01:52→22:00)
[2017-05-22 04:19] LABS: ABG HCO3 19.5 MMOL/L (20-26); ABG Oxygen Saturation 98.4 % (95-100); ABG PCO2 47.2 MM HG (35-48); ABG PH 7.262 (7.35-7.45); ABG TCO2 19.1 MMOL/L (23-27); Allen Test Positive; Pt O2 Delivery Device Ventilator
[2017-05-22] MEDS: hydrALAZINE 20 MG/1 ML VIAL IV PRN (04:22)
[2017-05-22 04:35] LABS: Basophils % 0.2 % (0.0-0.8); Eosinophils # 0.8 10*3/uL (0.0-0.87); Eosinophils % 5.2 % (0.00-10.9); Hematocrit 26.9 VOL% (35.7-47.0); Hemoglobin 8.5 GM/DL (12.0-16.0); Immature Granulocytes % 2.8 %; Immature Granulocytes Absolute 0.44 #; Lymphocytes # 1.8 10*3/uL (1.4-4.0); Lymphocytes % 11.1 % (21.3-54.2); Mean Corpuscular HGB Conc 31.6 GM/DL (32-36); Mean Corpuscular Hemoglobin 28 PG (27-34); Mean Corpuscular Volume 87.6 FL (87-102); Mean Platelet Volume 10.3 FL (9.6-12.0); Monocytes # 1.1 10*3/uL (0.11-0.8); Monocytes % 6.8 % (1.7-12.7); Neutrophils # 11.7 10*3/uL (1.4-7.4); Neutrophils % 73.9 % (38.7-73.9); Platelet Count 386 T/CUMM (130-400); Red Blood Count 3.07 MC/CUMM (3.8-5.5); Red Cell Distribution Width 17.6 % (9.3-17.3); White Blood Count 15.8 T/CUMM (4-12)
[2017-05-22 04:57] LABS: Calcium 8.3 MG/DL (8.5-10.1); Osmolality,Calculated 313.7 MOS/KG (273-304); Potassium 5.2 MMOL/L (3.5-5.1)
[2017-05-22] MEDS: AMPICILLIN INJ 2,000 MG in SODIUM CHLORIDE 0.9% 100 ML IV SCH ×3 (05:48→22:44)
[2017-05-22] MEDS: INSULIN LISPRO 100 UNIT/ML SUBCUT SCH ×3 (05:50→18:23)
[2017-05-22] MEDS: HYDROmorphone 2 MG/1 ML VIAL IV PRN ×3 (05:51→20:13)
[2017-05-22] MEDS: FUROSEMIDE 40 MG/4 ML VIAL IV SCH ×2 (08:10→16:01)
[2017-05-22] MEDS: hydrALAZINE 25 MG TABLET PO SCH ×3 (09:27→22:43)
[2017-05-22] MEDS: MUPIROCIN 2% OINT 22 GM TUBE TOP SCH ×2 (09:27→22:45)
[2017-05-22] MEDS: DOCUSATE SODIUM 100 MG/10 ML UDCUP PO SCH ×2 (09:27→22:43)
[2017-05-22] MEDS: PANTOPRAZOLE 40 MG VIAL IV SCH (09:27)
[2017-05-22] MEDS: amLODIPine 5 MG TABLET PO SCH ×2 (09:27→22:44)
[2017-05-22] MEDS: MULTIVITAMIN LIQUID (CENTRUM) 60 ML BOTTLE PO SCH (09:28)
[2017-05-22] MEDS: ACYCLOVIR INJ 1,000 MG in SODIUM CHLORIDE 0.9% 250 ML IV SCH ×2 (10:25→22:44)
[2017-05-22 10:27] LABS: Apearance,Urine CLOUDY (Clear); Bacteria,Urine Occasional /HPF (Few); Bilirubin,Urine Negative (Negative); Blood, Urine Moderate mg/dL (Negative); Glucose,Urine (UA) Negative (Negative); Ketones,Urine Negative (Negative); Mucus,Urine Occasional /LPF (Occasional); Nitrite,Urine Negative (Negative); Protein,Urine 100 MG/DL; RBC,Urine 339 /HPF (0-4); Squamous Epithelial Cell,Urine Occasional /HPF (0-10); WBC,Urine 779 /HPF (0-6)
[2017-05-22 10:28] LABS: Urine Color Yellow (Yellow)
[2017-05-22 10:54] LABS: Creatinine,Urine Random 108 MG/DL; Total Protein,Urine Random 194 MG/DL; Urea Nitrogen, Urine Random 327 MG/DL
[2017-05-22] MEDS: LINEZOLID INJ 600 MG in PREMIX 1 EACH IV SCH (11:38)
[2017-05-22 14:11] LABS: VDRL Spinal Fluid Negative (Negative)
[2017-05-22] MEDS: ENOXAPARIN 60 MG/0.6 ML SYRINGE SUBCUT SCH (22:43)
[2017-05-23] MEDS: ALBUTEROL/IPRATROPIUM 3 ML NEB RESP TX SCH ×4 (00:01→20:06)
[2017-05-23] MEDS: PROPOFOL 1,000 MG/100 ML BOTTLE IV SCH ×13 (00:05→23:13)
[2017-05-23] MEDS: INSULIN LISPRO 100 UNIT/ML SUBCUT SCH ×4 (00:29→18:11)
[2017-05-23] MEDS: LINEZOLID INJ 600 MG in PREMIX 1 EACH IV SCH ×2 (00:30→11:31)
[2017-05-23] MEDS: cefTRIAXone 2,000 MG in SYRINGE 1 EACH IV SCH ×2 (02:03→13:35)
[2017-05-23] MEDS: ALBUMIN 25% 25 GM in PREMIX 1 EACH IV SCH ×2 (02:06→14:17)
[2017-05-23 04:29] LABS: ABG Base Excess -7.3 MMOL/L (-2.5-2.5); ABG HCO3 19.7 MMOL/L (20-26); ABG Oxygen Saturation 97.8 % (95-100); ABG PCO2 46.5 MM HG (35-48); ABG PH 7.244 (7.35-7.45); ABG PO2 118.9 MM HG (80-95); ABG TCO2 21.1 MMOL/L (23-27)
[2017-05-23 05:11] LABS: Calcium 7.5 MG/DL (8.5-10.1); Osmolality,Calculated 295.9 MOS/KG (273-304); Potassium 5.1 MMOL/L (3.5-5.1)
[2017-05-23] MEDS: AMPICILLIN INJ 2,000 MG in SODIUM CHLORIDE 0.9% 100 ML IV SCH ×3 (06:05→20:30)
[2017-05-23] MEDS: HYDROmorphone 2 MG/1 ML VIAL IV PRN (06:29)
[2017-05-23] MEDS: FUROSEMIDE 40 MG/4 ML VIAL IV SCH ×2 (07:43→16:28)
[2017-05-23] MEDS: amLODIPine 5 MG TABLET PO SCH ×2 (08:53→20:12)
[2017-05-23] MEDS: DOCUSATE SODIUM 100 MG/10 ML UDCUP PO SCH ×2 (08:53→20:12)
[2017-05-23] MEDS: hydrALAZINE 25 MG TABLET PO SCH ×3 (08:53→20:12)
[2017-05-23] MEDS: MUPIROCIN 2% OINT 22 GM TUBE TOP SCH ×2 (08:54→20:13)
[2017-05-23] MEDS: PANTOPRAZOLE 40 MG VIAL IV SCH (08:55)
[2017-05-23] MEDS: MULTIVITAMIN LIQUID (CENTRUM) 60 ML BOTTLE PO SCH (08:55)
[2017-05-23] MEDS: ACYCLOVIR INJ 1,000 MG in SODIUM CHLORIDE 0.9% 250 ML IV SCH ×2 (10:12→22:45)
[2017-05-23] MEDS: SODIUM BICARB INJ 50 MEQ in SODIUM CHLORIDE 0.45% 1,000 ML IV SCH ×3 (12:35→21:10)
[2017-05-23] MEDS: ENOXAPARIN 60 MG/0.6 ML SYRINGE SUBCUT SCH (20:12)
[2017-05-24] MEDS: PROPOFOL 1,000 MG/100 ML BOTTLE IV SCH ×8 (01:03→18:31)
[2017-05-24] MEDS: INSULIN LISPRO 100 UNIT/ML SUBCUT SCH ×4 (01:06→17:52)
[2017-05-24] MEDS: LINEZOLID INJ 600 MG in PREMIX 1 EACH IV SCH ×2 (01:07→13:00)
[2017-05-24] MEDS: cefTRIAXone 2,000 MG in SYRINGE 1 EACH IV SCH ×2 (02:20→13:59)
[2017-05-24] MEDS: ALBUTEROL/IPRATROPIUM 3 ML NEB RESP TX SCH ×4 (02:21→18:55)
[2017-05-24] MEDS: ALBUMIN 25% 25 GM in PREMIX 1 EACH IV SCH ×2 (02:27→13:38)
[2017-05-24 04:30] LABS: ABG Base Excess -9.6 MMOL/L (-2.5-2.5); ABG HCO3 16.6 MMOL/L (20-26); ABG Oxygen Saturation 98.8 % (95-100); ABG PCO2 43.7 MM HG (35-48); ABG PH 7.215 (7.35-7.45); ABG TCO2 16.9 MMOL/L (23-27); Allen Test Positive; Pt O2 Delivery Device Ventilator
[2017-05-24] MEDS: SODIUM BICARB INJ 50 MEQ in SODIUM CHLORIDE 0.45% 1,000 ML IV SCH ×4 (04:46→22:54)
[2017-05-24 04:52] LABS: Basophils % 0.1 % (0.0-0.8); Eosinophils # 0.7 10*3/uL (0.0-0.87); Eosinophils % 4.2 % (0.00-10.9); Hematocrit 24.5 VOL% (35.7-47.0); Immature Granulocytes % 4.1 %; Immature Granulocytes Absolute 0.65 #; Lymphocytes # 1.4 10*3/uL (1.4-4.0); Lymphocytes % 8.8 % (21.3-54.2); Mean Corpuscular HGB Conc 32.7 GM/DL (32-36); Mean Corpuscular Hemoglobin 28 PG (27-34); Mean Corpuscular Volume 85.4 FL (87-102); Mean Platelet Volume 10.8 FL (9.6-12.0); Monocytes # 1.1 10*3/uL (0.11-0.8); Monocytes % 6.8 % (1.7-12.7); Platelet Count 396 T/CUMM (130-400); Red Blood Count 2.87 MC/CUMM (3.8-5.5); White Blood Count 15.8 T/CUMM (4-12)
[2017-05-24 05:07] LABS: Calcium 7.9 MG/DL (8.5-10.1); Osmolality,Calculated 306.5 MOS/KG (273-304); Potassium 5.6 MMOL/L (3.5-5.1)
[2017-05-24 05:18] LABS: Eosinophils 4 % (0-10); Giant Platelets Few; Hypochromasia 1+; Lymphocytes 10 % (20-55); Microcytosis Slight; Ovalocytes Slight; Platelet Estimate Adequate; Segmented Neutrophils 81 % (50-85); Total Cells Counted 100
[2017-05-24] MEDS: AMPICILLIN INJ 2,000 MG in SODIUM CHLORIDE 0.9% 100 ML IV SCH ×3 (05:34→22:39)
[2017-05-24] MEDS: FUROSEMIDE 40 MG/4 ML VIAL IV SCH ×2 (07:51→16:46)
[2017-05-24 08:06] LABS: M. Tuberculosis PCR Result Negative (Negative); M. Tuberculosis PCR Source CSF
[2017-05-24] MEDS: PANTOPRAZOLE 40 MG VIAL IV SCH (08:34)
[2017-05-24] MEDS: hydrALAZINE 25 MG TABLET PO SCH ×4 (08:34→23:22)
[2017-05-24] MEDS: amLODIPine 5 MG TABLET PO SCH ×3 (08:35→23:22)
[2017-05-24] MEDS: MUPIROCIN 2% OINT 22 GM TUBE TOP SCH ×2 (08:35→22:41)
[2017-05-24] MEDS: ZINC OXIDE PASTE 113 GM TUBE TOP PRN (08:35)
[2017-05-24] MEDS: DOCUSATE SODIUM 100 MG/10 ML UDCUP PO SCH ×2 (08:35→22:42)
[2017-05-24] MEDS: MULTIVITAMIN LIQUID (CENTRUM) 60 ML BOTTLE PO SCH (08:38)
[2017-05-24] MEDS: ACYCLOVIR INJ 1,000 MG in SODIUM CHLORIDE 0.9% 250 ML IV SCH ×2 (10:26→23:16)
[2017-05-24] MEDS: ENOXAPARIN 60 MG/0.6 ML SYRINGE SUBCUT SCH (22:40)
[2017-05-25] MEDS: INSULIN LISPRO 100 UNIT/ML SUBCUT SCH ×5 (00:56→23:41)
[2017-05-25] MEDS: ALBUTEROL/IPRATROPIUM 3 ML NEB RESP TX SCH ×4 (01:48→20:12)
[2017-05-25] MEDS: cefTRIAXone 2,000 MG in SYRINGE 1 EACH IV SCH ×2 (02:33→14:02)
[2017-05-25] MEDS: ALBUMIN 25% 25 GM in PREMIX 1 EACH IV SCH ×2 (02:36→12:57)
[2017-05-25] MEDS: LINEZOLID INJ 600 MG in PREMIX 1 EACH IV SCH ×2 (02:36→12:58)
[2017-05-25 03:35] LABS: ABG Base Excess -12.1 MMOL/L (-2.5-2.5); ABG HCO3 14.9 MMOL/L (20-26); ABG PCO2 33.2 MM HG (35-48); ABG PH 7.243 (7.35-7.45); ABG TCO2 13.6 MMOL/L (23-27)
[2017-05-25] MEDS: PROPOFOL 1,000 MG/100 ML BOTTLE IV SCH ×4 (04:50→19:55)
[2017-05-25] MEDS: AMPICILLIN INJ 2,000 MG in SODIUM CHLORIDE 0.9% 100 ML IV SCH ×3 (04:50→21:03)
[2017-05-25 05:18] LABS: Basophils % 0.1 % (0.0-0.8); Eosinophils # 0.1 10*3/uL (0.0-0.87); Eosinophils % 0.4 % (0.00-10.9); Hematocrit 25.3 VOL% (35.7-47.0); Immature Granulocytes Absolute 0.59 #; Lymphocytes # 1.4 10*3/uL (1.4-4.0); Mean Corpuscular HGB Conc 31.6 GM/DL (32-36); Mean Corpuscular Hemoglobin 28 PG (27-34); Mean Corpuscular Volume 86.9 FL (87-102); Mean Platelet Volume 10.9 FL (9.6-12.0); Monocytes # 1.3 10*3/uL (0.11-0.8); Monocytes % 6.4 % (1.7-12.7); Neutrophils # 16.4 10*3/uL (1.4-7.4); Neutrophils % 83.1 % (38.7-73.9); Platelet Count 482 T/CUMM (130-400); Red Blood Count 2.91 MC/CUMM (3.8-5.5); Red Cell Distribution Width 18.3 % (9.3-17.3); White Blood Count 19.8 T/CUMM (4-12)
[2017-05-25 05:51] LABS: Band Neutrophils 1 % (0-10); Giant Platelets Few; Hypochromasia 1+; Lymphocytes 3 % (20-55); Microcytosis Slight; Ovalocytes Slight; Platelet Estimate Increased; Segmented Neutrophils 89 % (50-85); Total Cells Counted 100
[2017-05-25 05:51] LABS: Calcium 8.4 MG/DL (8.5-10.1); Osmolality,Calculated 298.9 MOS/KG (273-304); Potassium 5.9 MMOL/L (3.5-5.1)
[2017-05-25] MEDS: SODIUM BICARB INJ 50 MEQ in SODIUM CHLORIDE 0.45% 1,000 ML IV SCH (06:09)
[2017-05-25] MEDS: FUROSEMIDE 40 MG/4 ML VIAL IV SCH (07:37)
[2017-05-25] MEDS ORDERED: SODIUM BICARB INJ 50 MEQ in SODIUM CHLORIDE 0.45% 1,000 ML IV SCH (08:30)
[2017-05-25] MEDS: MUPIROCIN 2% OINT 22 GM TUBE TOP SCH ×2 (08:51→20:22)
[2017-05-25] MEDS: hydrALAZINE 25 MG TABLET PO SCH ×3 (08:52→20:15)
[2017-05-25] MEDS: PANTOPRAZOLE 40 MG VIAL IV SCH (08:52)
[2017-05-25] MEDS: ZINC OXIDE PASTE 113 GM TUBE TOP PRN (08:52)
[2017-05-25] MEDS: cloNIDine 0.3 MG/24 HR PATCH TRANSDERM SCH (08:53)
[2017-05-25] MEDS: MULTIVITAMIN LIQUID (CENTRUM) 60 ML BOTTLE PO SCH (08:53)
[2017-05-25] MEDS: amLODIPine 5 MG TABLET PO SCH ×2 (08:53→20:15)
[2017-05-25] MEDS: DOCUSATE SODIUM 100 MG/10 ML UDCUP PO SCH ×2 (08:53→20:15)
[2017-05-25] MEDS: ACYCLOVIR INJ 1,000 MG in SODIUM CHLORIDE 0.9% 250 ML IV SCH ×2 (10:25→22:57)
[2017-05-25] MEDS ORDERED: CALCIUM GLUCONATE 1,000 MG/10 ML VIAL IV ONE (11:01)
[2017-05-25] MEDS ORDERED: CALCIUM GLUCONATE 1,000 MG in SODIUM CHLORIDE 0.9% 100 ML IV ONE (11:30)
[2017-05-25] MEDS ORDERED: HEPARIN 10,000 UNIT/10 ML VIAL IV SCH (16:00)
[2017-05-25 16:10] LABS: Hepatitis B Surface Ag Quant < 0.10 Index; Hepatitis B Surface Ag Result Negative (Negative)
[2017-05-25] MEDS: ENOXAPARIN 60 MG/0.6 ML SYRINGE SUBCUT SCH (20:13)
[2017-05-26] MEDS: PROPOFOL 1,000 MG/100 ML BOTTLE IV SCH ×6 (00:13→20:00)
[2017-05-26] MEDS: LINEZOLID INJ 600 MG in PREMIX 1 EACH IV SCH ×3 (00:31→23:52)
[2017-05-26] MEDS: ALBUTEROL/IPRATROPIUM 3 ML NEB RESP TX SCH ×4 (01:08→19:48)
[2017-05-26] MEDS: cefTRIAXone 2,000 MG in SYRINGE 1 EACH IV SCH ×2 (01:38→13:23)
[2017-05-26] MEDS: ALBUMIN 25% 25 GM in PREMIX 1 EACH IV SCH ×2 (01:39→12:31)
[2017-05-26 03:25] LABS: ABG Base Excess -6.4 MMOL/L (-2.5-2.5); ABG HCO3 19.1 MMOL/L (20-26); ABG Oxygen Saturation 97.7 % (95-100); ABG PCO2 43.6 MM HG (35-48); ABG PH 7.272 (7.35-7.45); Allen Test Positive; Pt O2 Delivery Device Ventilator
[2017-05-26 04:09] LABS: Eosinophils # 0.1 10*3/uL (0.0-0.87); Eosinophils % 0.6 % (0.00-10.9); Hematocrit 22.7 VOL% (35.7-47.0); Hemoglobin 7.6 GM/DL (12.0-16.0); Immature Granulocytes % 4.4 %; Immature Granulocytes Absolute 0.88 #; Lymphocytes # 1.3 10*3/uL (1.4-4.0); Lymphocytes % 6.3 % (21.3-54.2); Mean Corpuscular HGB Conc 33.5 GM/DL (32-36); Mean Corpuscular Hemoglobin 28 PG (27-34); Mean Corpuscular Volume 84.1 FL (87-102); Mean Platelet Volume 10.8 FL (9.6-12.0); Monocytes # 1.4 10*3/uL (0.11-0.8); Monocytes % 7.2 % (1.7-12.7); NRBC # 0.03 10*3/uL; Neutrophils # 16.3 10*3/uL (1.4-7.4); Neutrophils % 81.5 % (38.7-73.9); Platelet Count 452 T/CUMM (130-400); Red Cell Distribution Width 18.3 % (9.3-17.3)
[2017-05-26 04:28] LABS: Albumin 3.4 G/DL (3.4-5.0); Bilirubin,Total 4.1 MG/DL (0.2-1.0); Calcium 8.3 MG/DL (8.5-10.1); Osmolality,Calculated 285.9 MOS/KG (273-304); Potassium 4.5 MMOL/L (3.5-5.1)
[2017-05-26 04:45] LABS: Band Neutrophils 2 % (0-10); Giant Platelets Few; Hypochromasia 1+; Lymphocytes 5 % (20-55); Microcytosis Slight; Ovalocytes Slight; Platelet Estimate Adequate; Segmented Neutrophils 84 % (50-85); Total Cells Counted 100
[2017-05-26] MEDS: AMPICILLIN INJ 2,000 MG in SODIUM CHLORIDE 0.9% 100 ML IV SCH ×3 (05:57→21:23)
[2017-05-26] MEDS: INSULIN LISPRO 100 UNIT/ML SUBCUT SCH ×4 (06:04→23:52)
[2017-05-26] MEDS: DOCUSATE SODIUM 100 MG/10 ML UDCUP PO SCH ×2 (08:09→20:47)
[2017-05-26] MEDS: PANTOPRAZOLE 40 MG VIAL IV SCH (08:09)
[2017-05-26] MEDS: hydrALAZINE 25 MG TABLET PO SCH ×3 (08:10→23:45)
[2017-05-26] MEDS: amLODIPine 5 MG TABLET PO SCH ×2 (08:10→20:47)
[2017-05-26] MEDS: MULTIVITAMIN LIQUID (CENTRUM) 60 ML BOTTLE PO SCH (08:10)
[2017-05-26] MEDS: MUPIROCIN 2% OINT 22 GM TUBE TOP SCH ×2 (08:10→20:47)
[2017-05-26] MEDS: ACYCLOVIR INJ 1,000 MG in SODIUM CHLORIDE 0.9% 250 ML IV SCH ×2 (10:41→22:20)
[2017-05-26] MEDS ORDERED: SODIUM CHLORIDE 0.9% 1,000 ML IV PRN (13:34)
[2017-05-27] MEDS: PROPOFOL 1,000 MG/100 ML BOTTLE IV SCH ×3 (00:05→06:44)
[2017-05-27] MEDS: ALBUMIN 25% 25 GM in PREMIX 1 EACH IV SCH (00:58)
[2017-05-27] MEDS: cefTRIAXone 2,000 MG in SYRINGE 1 EACH IV SCH (01:01)
[2017-05-27] MEDS: ALBUTEROL/IPRATROPIUM 3 ML NEB RESP TX SCH ×3 (01:03→12:41)
[2017-05-27 04:47] LABS: Basophils % 0.2 % (0.0-0.8); Eosinophils # 0.6 10*3/uL (0.0-0.87); Eosinophils % 3.1 % (0.00-10.9); Hematocrit 26.1 VOL% (35.7-47.0); Hemoglobin 8.9 GM/DL (12.0-16.0); Immature Granulocytes % 4.4 %; Immature Granulocytes Absolute 0.78 #; Lymphocytes # 1.9 10*3/uL (1.4-4.0); Lymphocytes % 10.6 % (21.3-54.2); Mean Corpuscular HGB Conc 34.1 GM/DL (32-36); Mean Corpuscular Hemoglobin 28 PG (27-34); Mean Corpuscular Volume 83.4 FL (87-102); Mean Platelet Volume 10.6 FL (9.6-12.0); Monocytes # 1.5 10*3/uL (0.11-0.8); Monocytes % 8.6 % (1.7-12.7); NRBC # 0.08 10*3/uL; Neutrophils # 13.1 10*3/uL (1.4-7.4); Neutrophils % 73.1 % (38.7-73.9); Platelet Count 447 T/CUMM (130-400); Red Blood Count 3.13 MC/CUMM (3.8-5.5); Red Cell Distribution Width 17.6 % (9.3-17.3); White Blood Count 17.9 T/CUMM (4-12)
[2017-05-27] MEDS: AMPICILLIN INJ 2,000 MG in SODIUM CHLORIDE 0.9% 100 ML IV SCH (04:56)
[2017-05-27 04:58] LABS: ABG Base Excess -1.8 MMOL/L (-2.5-2.5); ABG HCO3 24.4 MMOL/L (20-26); ABG Oxygen Saturation 98.1 % (95-100); ABG PCO2 48.7 MM HG (35-48); ABG PH 7.318 (7.35-7.45); ABG PO2 123.5 MM HG (80-95); ABG TCO2 25.9 MMOL/L (23-27); Allen Test Positive; Pt O2 Delivery Device Ventilator
[2017-05-27 05:20] LABS: Band Neutrophils 2 % (0-10); Eosinophils 8 % (0-10); Giant Platelets Few; Hypochromasia 1+; Lymphocytes 8 % (20-55); Ovalocytes Slight; Platelet Estimate Adequate; Segmented Neutrophils 76 % (50-85); Total Cells Counted 100
[2017-05-27 05:21] LABS: Microcytosis Slight
[2017-05-27 05:36] LABS: Osmolality,Calculated 276.7 MOS/KG (273-304); Potassium 3.5 MMOL/L (3.5-5.1)
[2017-05-27] MEDS: INSULIN LISPRO 100 UNIT/ML SUBCUT SCH ×2 (06:32→12:52)
[2017-05-27 06:55] LABS: Prealbumin 22.7 MG/DL (20-40)
[2017-05-27] MEDS ORDERED: VECURONIUM 10 MG VIAL IV ONE (07:25)
[2017-05-27] MEDS ORDERED: DOPamine 800 MG/250 ML PREMIX IV ONE (07:38)
[2017-05-27 08:49] LABS: Basophils # 0.1 10*3/uL (0.0-0.2); Basophils % 0.4 % (0.0-0.8); Eosinophils # 1.2 10*3/uL (0.0-0.87); Hematocrit 29.6 VOL% (35.7-47.0); Hemoglobin 10.4 GM/DL (12.0-16.0); Immature Granulocytes Absolute 2.37 #; Lymphocytes # 7.3 10*3/uL (1.4-4.0); Lymphocytes % 24.4 % (21.3-54.2); Mean Corpuscular HGB Conc 35.1 GM/DL (32-36); Mean Corpuscular Hemoglobin 29 PG (27-34); Mean Corpuscular Volume 82.7 FL (87-102); Mean Platelet Volume 10.5 FL (9.6-12.0); Monocytes # 2.4 10*3/uL (0.11-0.8); Monocytes % 8.1 % (1.7-12.7); NRBC # 0.47 10*3/uL; Neutrophils # 16.4 10*3/uL (1.4-7.4); Neutrophils % 55.1 % (38.7-73.9); Platelet Count 584 T/CUMM (130-400); Red Blood Count 3.58 MC/CUMM (3.8-5.5); White Blood Count 29.8 T/CUMM (4-12)
[2017-05-27] MEDS: hydrALAZINE 25 MG TABLET PO SCH (09:11)
[2017-05-27] MEDS: MUPIROCIN 2% OINT 22 GM TUBE TOP SCH (09:11)
[2017-05-27] MEDS: MULTIVITAMIN LIQUID (CENTRUM) 60 ML BOTTLE PO SCH (09:16)
[2017-05-27] MEDS: DOCUSATE SODIUM 100 MG/10 ML UDCUP PO SCH (09:16)
[2017-05-27] MEDS: amLODIPine 5 MG TABLET PO SCH (09:16)
[2017-05-27] MEDS: PANTOPRAZOLE 40 MG VIAL IV SCH (09:17)
[2017-05-27 09:23] LABS: Band Neutrophils 1 % (0-10); Eosinophils 5 % (0-10); Hypochromasia 1+; Lymphocytes 28 % (20-55); Metamyelocytes 2 %; Myelocytes 1 %; Segmented Neutrophils 55 % (50-85); Total Cells Counted 100
[2017-05-27 09:24] LABS: Burr Cells Slight; Microcytosis 1+
[2017-05-27 09:25] LABS: Ovalocytes Slight; Spherocytes Slight
[2017-05-27] MEDS ORDERED: LORazepam 2 MG/1 ML VIAL IV PRN (12:54)
[2017-05-27] MEDS ORDERED: MORPHINE 2 MG/1 ML SYRINGE IV PRN (12:54)
[2017-05-27] MEDS: LINEZOLID INJ 600 MG in PREMIX 1 EACH IV SCH (12:58)
[2017-05-27] MEDS: ACYCLOVIR INJ 1,000 MG in SODIUM CHLORIDE 0.9% 250 ML IV SCH (12:59)
[2017-05-27 14:03] VITALS: BP 155/74
== END 2017-05-27 14:12 | disposition expired | DRG 166 ==
LOC: EDUNIT# → N.ED 09:52 → SUPCPDRO 12:38 → N.EDINP 12:38 → N.ICU 14:23
PROVIDERS: ADMIT Family Medicine; ATTEND Family Medicine